=== PATIENT | male | born 1970 | race Caucasian/White ===

== ENCOUNTER 2017-06-07 06:50 | Day surgery (SDC) | payer OTHER ==
[2017-06-06 09:40] VITALS: BMI 31.6
[2017-06-07] MEDS ORDERED: ROPIVACAINE HCL 0.5% 30ML VIAL ONE (08:38)
[2017-06-07] MEDS ORDERED: DEXAMETHASONE SOD PHOSPHATE/PF 10 MG/ML SDV ONE (08:38)
[2017-06-07] MEDS ORDERED: MIDAZOLAM HCL 2 MG/2 ML SINGLE DOSE VIAL ONE ×2 (08:50)
--- NOTE | 2017-06-07 09:31 | HP ---
Satellite H - Chief Complaint Chief Complaint: right shoulder pain History of Present Illness: right shoulder impingement, RTC tear History Source: Patient Limitations to Obtaining History: No Limitations - Past Medical History Allergies/Adverse Reactions: Allergies Allergy/AdvReac Type Severity Reaction Status Date / Time Penicillins Allergy Verified 06/06/17 09:25 - Current Medications Current Medications: Home Medications Medication Instructions Recorded Fexofenadine/Pseudoephedrine 1 each PO PRN PRN 06/06/17 [[place]ona-D 24 Hour Tablet] Hydrocodone/Acetaminophen [[place] 1 each PO Q6H PRN #40 tablet MDD 4 06/07/17 5-325 Tablet] Satellite Physical Exam - Physical Examination Vital Signs: Vital Signs Period Temp Pulse Resp BP Sys/[place] Pulse Ox Last 24 Hr 98.2 F 68 20 135/75 99 General Appearance: Well Nourished ENT: Clear Lung: Clear to auscultation Heart: Regular rate & rhythm Breasts: Soft Abdomen: Soft Extremities: No edema Satellite Impression/Plan - Impression/Plan Impression: right shoulder impingement syndrome, RTC tear Operative Procedure: right shoulder arthroscopy, decompression, possible RTC repair Date to be Performed: 06/07/17
[2017-06-07] MEDS ORDERED: DEXAMETHASONE SOD PHOSPHATE 4 MG/1 ML VIAL ONE (10:20)
[2017-06-07] MEDS ORDERED: LIDOCAINE HCL/PF 2% SDV 5ML VIAL ONE (10:20)
[2017-06-07] MEDS ORDERED: PROPOFOL 20 ML ONE (10:20)
[2017-06-07] MEDS ORDERED: ROCURONIUM BROMIDE 50 MG/5 ML VIAL ONE (10:21)
[2017-06-07] MEDS ORDERED: ceFAZolin SODIUM 1 GM VIAL ONE (10:21)
[2017-06-07] MEDS ORDERED: CLINDAMYCIN PHOSPHATE 600 MG/4 ML VIAL ONE (10:39)
[2017-06-07] MEDS ORDERED: GLYCOPYRROLATE 0.2 MG/1 ML VIAL ONE (11:15)
[2017-06-07] MEDS ORDERED: NEOSTIGMINE METHYLSULFATE 0.5 MG/ML - 10 ML MDV ONE (11:15)
--- NOTE | 2017-06-07 11:24 | OP ---
Operative Note - Note: Operative Date: 06/07/17 ([facility]) Pre-Operative Diagnosis: right shoulder impingement, rct Operation: right shoulder arthroscopy with SAD Post-Operative Diagnosis: Other (impingement) Surgeon: Yuri Garces Pararescue Craftsman: Raghu Lowery Anesthesiologist/BLOCKER AND POLISHER GOLD WHEEL: Karlo Murdock Anesthesia: General, Local Specimens Removed: shavings Estimated Blood Loss (mls): 5 Operative Report Dictated: Yes
[2017-06-07] MEDS ORDERED: oxyCODONE HCL 5 MG TABLET PO PRN (11:32)
[2017-06-07] MEDS ORDERED: ONDANSETRON 4 MG/2 ML VIAL IVPUSH PRN (11:32)
[2017-06-07] MEDS ORDERED: LACTATED RINGERS SOLUTION 1,000 ML IV SCH (11:45)
[2017-06-07 14:16] VITALS: BP 120/78; PULSE 98; TEMP 98.2
--- NOTE | 2017-06-08 11:50 | OP ---
DATE OF OPERATION: 06/07/2017 OPERATION: Right shoulder arthroscopy. PREOPERATIVE DIAGNOSIS: Right shoulder impingement syndrome and possible rotator cuff tear. SURGEON: Yuri Osborne MD SLIDE MAKER: SLOANE Valenzuela BLOOD LOSS: Quite minimal. INDICATIONS: This patient is a 47-year-old male with a preoperative diagnosis of right shoulder impingement syndrome and a possible rotator cuff tear. After understanding the potential risks, complications, alternatives, and benefits of surgery versus nonsurgical treatment, the patient elected to undergo this procedure. DESCRIPTION OF PROCEDURE: The patient was brought to the operating room, peripheral IV placed, IV sedation given. The patient had a right interscalene block. Clindamycin 600 mg was given. LMA anesthesia was induced. Ample padding was placed throughout body and the head, and he was placed into the beach chair position. The right upper extremity was then prepped and draped in a sterile fashion. The bony landmarks were marked out with a marking pen. The posterior portal was established. Diagnostic glenohumeral arthroscopy was performed. The humeral head looked good. There was no osteoarthritis. The glenoid also looked good. There was no osteoarthritis. The glenoid labrum looked good. It was very mildly frayed, but no tear. The biceps tendon and biceps anchor also look good. The entire undersurface of the rotator cuff was directly visualized and seen to be intact with no undersurface tears whatsoever. All excess saline was removed from the glenohumeral joint. Next, our attention turned to the subacromial space. A lateral portal was established under direct visualization using a spinal needle. Lateral portal was established. A Green cannula was introduced into the subacromial space. The patient had a tremendous amount of soft tissue bursitis. A subacromial soft tissue bursectomy was done. After the extensive debridement, this revealed a large subacromial spur. The undersurface of the distal clavicle looked okay. Shaver and the ArthroCare wand were used to do an extensive debridement/soft tissue bursectomy. The top surface of the rotator cuff could then be well visualized. The arm was moved throughout a full range of motion. The rotator cuff was directly visualized, and no rotator cuff tear was seen. Therefore, the patient did not need rotator cuff repair. Next, the subacromial spur was taken down with a 5.5-mm oval bur, fine tuned in reverse, and the shaver was introduced to fine tune it further and remove all soft tissue debris. The undersurface of the AC joint and the clavicle looked quite good. The top surface of the rotator cuff was then directly visualized again. There was no rotator cuff tear seen. The area was copiously irrigated and washed out, all excess saline and debris removed. The arthroscopic portals were closed with 3-0 nylon sutures. The area was then washed, dried, covered with Aquacel dressing, and he was placed into a sling. Total operative time was about 35 minutes. There were no complications during the case. The patient tolerated the procedure very well and was brought to the ambulatory recovery room in stable condition. Blood loss was quite minimal. YURI OSBORNE M.D. [id number]
--- NOTE | 2017-06-09 11:28 | PATH ---
Surgical Pathology Report Patient Name: DARIUS GAY Med. Rec. #: [id number] /Age/Gender: 1970 (Age: 47) / M Account: [id number] Location: [facility] SURGICAL Taken: 06/07/2017 Received: 06/07/2017 Reported: 06/09/2017 Physicians: Yuri Garces M.D. Specimen(s) Received RIGHT SHOULDER SHAVINGS Clinical History Impingement syndrome right shoulder Final Diagnosis RIGHT SHOULDER, SHAVINGS: FRAGMENTS OF SKELETAL MUSCLE, CARTILAGE, AND FIBROCONNECTIVE TISSUE WITH FOCAL DEGENERATIVE CHANGE. Electronically Signed Jael Hutchinson M.D. Gross Description Received in formalin, labeled "right shoulder shavings," is a 3.8 x 2.5 x 0.6 cm. aggregate of chi-yellow soft tissue fragments. A correspondence representative portion is submitted in one cassette. /06/07/2017 saudi06/07/2017
== END 2017-06-07 14:45 | disposition home or self-care (01) ==
LOC: JASU-SURG 06:50
PROVIDERS: ATTEND Orthopaedic Surgery
PROC: 0RBJ4ZZ Excision of Right Shoulder Joint, Percutaneous Endoscopic Approach (ICD-10-PCS; principal; 2017-06-07 10:45)
DX: M75.41 Impingement syndrome of right shoulder (principal); M75.51 Bursitis of right shoulder; M75.81 Other shoulder lesions, right shoulder
CPT/HCPCS: 88304-TC; 94760